=== PATIENT | female | born 1950 | race African-American/Black ===

== ENCOUNTER → 2017-02-12 | Outpatient (CLI) | payer OTHER ==
[~2017-02-12] MED LIST: ALBUTEROL2.5 MG/0.5 INH; CO Q-10100 MG PO; CRESTOR10 MG PO; FLEXERIL PO; HYDROCHLOROTHIA25 M1 PO; HYDROCODONE-AP1 EAC6 PO; HYDROXYZINE HCL25 M1 PO; KLOR-CON 1010 MEQ PO; LASIX 20 MG TAB20 MG PO; MIRALAX17 GM PO; MS CONTIN 60 MG60 M1 PO; NEXIUM40 MG PO; NITROGLYCERIN0.4 MG SUBLING; OXYCONTIN20 M1 PO; PERCOCET 10-321 EACH PO; PREDNISONE50 MG PO; PREMARIN VAGI42.5 G1 VAG; PROAIR HFA8.5 GM INH; RED YEAST RICE600 M1 PO; RESTORIL30 MG PO; SENOKOT-S1 TA1 PO; STOOL SOFTENER240 MG PO; SYMBICORT160 MCG/4. INH; TOPAMAX 25 MG T25 M1 PO; TRIAMCINOLONE A80 G2 TOP; VENTOLIN17 GM INH; VITAMIN B-12500 MCG PO; VITAMIN D 5050000 I1 PO; VITAMIN D1000 UNI1 PO; XANAX XR1 MG PO
== END ==
LOC: ULTRA 08:14
DX: M79.89 Other specified soft tissue disorders (principal)

== ENCOUNTER 2018-08-17 10:18 | Emergency (ER) | payer OTHER ==
[~2018-08-17] VITALS: Ht 165.1 cm; Wt 72.6 kg
--- NOTE | ~2018-08-17 | EKG ---
[address] [address] ELECTROCARDIOGRAM REPORT Name: KENDRICK CORREANADER Morales Room #: [facility]#: [id number] Admission: 08/17/18 Attend Phys: Discharge: 08/17/18 Date of : 50 Report #: [id number] THIS REPORT FOR: //name// [facility] ED Test Date: 2018-08-17 Test Time: 10:49:40 Pat Name: JEROME CORREA Department: Room: Gender: F [employer]: KORI : 1950 Requested By: Nikki Liriano Order Number: [id number] MD: Artie Keenan Measurements Intervals [place] Rate: 61 P: 46 NV: 151 QRS: 16 QRSD: 93 T: 25 QT: 434 QTc: 438 Interpretive Statements Sinus rhythm No significant abnormality No previous ECGs available for comparison Electronically Signed On 08-18-2018 8:10:23 GEOSPATIAL EXTRACTOR ANALYSIS by Artie Keenan [email or web address] <ELECTRONICALLY SIGNED> By: Artie Keenan MD, [facility] 08/18/18 0810 1049 1049 Artie Keenan MD, FACC /EPI
[2018-08-17 12:14] LABS: ABSOLUTE NEUTROPHILS 2.1 thou/uL (1.4-8.2); BASOPHILS 0.7 % (0.0-2.0); EOSINOPHILS 3.8 % (0.0-3.0); HEMOGLOBIN 10.3 gm/dL (12.0-15.0); MCV 84.3 fL (80.0-100.0); MONOCYTES 10.2 % (1.0-8.0); PLATELET COUNT 268 thou/uL (150-400); POLYS 40.3 % (36.0-66.0); RDW 12.6 % (10.5-14.5); WBC 5.3 thou/uL (4.0-11.0)
[2018-08-17 12:20] LABS: ANION GAP 4 mmol/L (7-16); BUN 11 mg/dL (7-18); CALCIUM 8.7 mg/dL (8.5-10.1); CHLORIDE 107 mmol/L (98-107); CO2 30 mmol/L (21-32); CREATININE 0.8 mg/dL (0.6-1.0); GLUCOSE 81 mg/dL (74-106); POTASSIUM 3.9 mmol/L (3.5-5.1); SODIUM 141 mmol/L (136-145)
[2018-08-17 12:28] LABS: SGOT 17 U/L (15-37); SGPT 20 U/L (30-65); TOTAL BILIRUBIN 0.2 mg/dL (<0.1-1.0); TOTAL PROTEIN 6.4 g/dL (6.4-8.2); TROPONIN-I <0.06 ng/mL (<0.06)
[2018-08-17] MEDS ORDERED: CYCLOBENZAPRINE5 MG PO (12:50)
[2018-08-17 14:50] VITALS: BP 135/77
== END 2018-08-17 14:51 | disposition home or self-care (01) ==
LOC: ER 10:18
PROVIDERS: Physician Assistant
DX: S16.1XXA Strain of muscle, fascia and tendon at neck level, initial encounter (principal); R07.89 Other chest pain; M25.562 Pain in left knee; R10.30 Lower abdominal pain, unspecified; M79.7 Fibromyalgia; M19.90 Unspecified osteoarthritis, unspecified site; F32.9 Major depressive disorder, single episode, unspecified; F41.9 Anxiety disorder, unspecified; J44.9 Chronic obstructive pulmonary disease, unspecified; E78.00 Pure hypercholesterolemia, unspecified; J45.909 Unspecified asthma, uncomplicated; I10 Essential (primary) hypertension; K21.9 Gastro-esophageal reflux disease without esophagitis; E11.40 Type 2 diabetes mellitus with diabetic neuropathy, unspecified; Z87.891 Personal history of nicotine dependence; Z91.041 Radiographic dye allergy status; Z90.89 Acquired absence of other organs; Z88.8 Allergy status to other drugs, medicaments and biological substances; Z96.651 Presence of right artificial knee joint; Z96.642 Presence of left artificial hip joint; Z90.710 Acquired absence of both cervix and uterus; Z88.6 Allergy status to analgesic agent; Z88.0 Allergy status to penicillin; V89.2XXA Person injured in unspecified motor-vehicle accident, traffic, initial encounter; Y92.89 Other specified places as the place of occurrence of the external cause; Y93.89 Activity, other specified; Y99.8 Other external cause status

== ENCOUNTER → 2018-09-25 | Outpatient (CLI) | payer OTHER ==
[~2018-09-25] MED LIST changes: +CYCLOBENZAPRINE5 MG PO
== END ==
LOC: NUC 11:06
DX: M47.812 Spondylosis without myelopathy or radiculopathy, cervical region (principal); M47.816 Spondylosis without myelopathy or radiculopathy, lumbar region; M19.011 Primary osteoarthritis, right shoulder; M19.012 Primary osteoarthritis, left shoulder; M19.032 Primary osteoarthritis, left wrist; M19.031 Primary osteoarthritis, right wrist; M19.072 Primary osteoarthritis, left ankle and foot; M19.071 Primary osteoarthritis, right ankle and foot; Z96.652 Presence of left artificial knee joint

== ENCOUNTER → 2019-03-23 | Outpatient (CLI) | payer OTHER | LOC: NUC 03-18 12:40 | DX: M25.562 Pain in left knee (principal); Z96.653 Presence of artificial knee joint, bilateral ==

== ENCOUNTER → 2021-02-08 | Outpatient (CLI) | payer OTHER | LOC: NUC 08:28 | PROVIDERS: ATTEND Internal Medicine Rheumatology | DX: M25.562 Pain in left knee (principal) ==